=== PATIENT | female | born 1970 | race American Indian/Alaskan Native ===

== ENCOUNTER 2018-03-30 09:19 | Emergency (ER) | payer OTHER ==
[2018-03-30] MEDS ORDERED: SUBLIMAZE IV ONE ×2 (09:28→13:27)
[2018-03-30] MEDS ORDERED: REGLAN IV ONE (09:28)
[2018-03-30] MEDS ORDERED: BENADRYL IV ONE (09:28)
--- NOTE | 2018-03-30 09:30 | Emergency Department Report ---
ED General Adult HPI - General Chief complaint: Syncope Stated complaint: SYNCOPAL EPISODE Time Seen by Provider: 03/30/18 09:27 Source: patient, EMS (verbal report received from EMS.ems notes not available at time of chart dictation) Limitations: Physical Limitation - History of Present Illness Initial comments: This is a 48-year-old female with a possible history of chronic migraines, who presents to the ER with EMS for syncope and headache. As per verbal report from EMS, patient's last known well time is at/around 8:50 AM. Patient apparently had been complaining of headache, and had an episode of syncope. EMS reports normal fingerstick in the field. Patient complains of headache but is distracted. She cannot describe the nature of the headache, radiation, exacerbating or relieving factors. She reports that she's had severe headaches in the past, but is unable to answer whether or not this headache is the worst headache of her life. The patient is very distracted, it is not able to answer additional questions. She does follow some commands. The patient is moving 4 extremities. Sensation is intact to light touch. She is turning her head back and forth, and will not open her eyes when I ask her to examine her eyes. -: Sudden Location: head Radiation: other Quality: other Consistency: other Improves with: other Worsens with: other Associated Symptoms: headaches, loss of appetite, weakness - Related Data Previous Rx's Medication Instructions Recorded Last Taken Type Butalb/Acetaminophen/Caffeine 1 cap PO Q8HR PRN #15 cap 03/30/18 Unknown Rx [Fioricet 50-300-40 mg CAP] LORazepam [Ativan] 0.5 mg PO QHS #12 tab 03/30/18 Unknown Rx Topiramate [Topamax] 50 mg PO DAILY #15 tablet 03/30/18 Unknown Rx Allergies Allergy/AdvReac Type Severity Reaction Status Date / Time No Known Allergies Allergy Unverified 03/30/18 09:28 ED Review of Systems ROS: Stated complaint: SYNCOPAL EPISODE Other details as noted in HPI Comment: Unobtainable due to pts medical conditions Cardiovascular: syncope Neurological: headache Psychiatric: anxiety ED Past Medical Hx - Medications Home Medications: Home Medications Medication Instructions Recorded Confirmed Last Taken Type Butalb/Acetaminophen/Caffeine 1 cap PO Q8HR PRN #15 cap 03/30/18 Unknown Rx [Fioricet 50-300-40 mg CAP] LORazepam [Ativan] 0.5 mg PO QHS #12 tab 03/30/18 Unknown Rx Topiramate [Topamax] 50 mg PO DAILY #15 tablet 03/30/18 Unknown Rx ED Physical Exam - General Limitations: Physical Limitation General appearance: in distress - Head Head exam: Present: atraumatic, normocephalic - ENT ENT exam: Present: normal exam, normal orophraynx, normal external ear exam - Neck Neck exam: Present: normal inspection, full ROM. Absent: tenderness, meningismus - Respiratory Respiratory exam: Present: normal lung sounds bilaterally. Absent: respiratory distress, wheezes, rales, rhonchi, stridor, chest wall tenderness, accessory muscle use, decreased breath sounds - Cardiovascular Cardiovascular Exam: Present: regular rate, normal rhythm, normal heart sounds. Absent: bradycardia, tachycardia, irregular rhythm - GI/Abdominal GI/Abdominal exam: Present: soft. Absent: distended, tenderness, guarding, rebound, rigid, pulsatile mass - Extremities Exam Extremities exam: Present: normal inspection, other (2+ pulses noted in the bilateral upper, lower extremities. Compartments soft. No long bony tenderness. The pelvis is stable.). Absent: tenderness - Back Exam Back exam: Present: normal inspection, full ROM. Absent: tenderness, CVA tenderness (R), paraspinal tenderness - Neurological Exam Neurological exam: Present: alert (5 out of 5 strength in 4 extremities. Sensation intact to light touch in 4 extremities. Alert to name, follows commands), other (there is no obvious facial droop. The tongue is midline. Hearing is intact bilaterally. Sensation is intact to light touch in the bilateral V1, V2, V3 distribution unable to perform complete cranial nerve exam secondary to patient's inability to cooperate.) - Psychiatric Psychiatric exam: Present: anxious - Skin Skin exam: Present: warm, dry ED Course Vital Signs 03/30/18 03/30/18 03/30/18 09:19 09:42 09:45 Temperature 98.0 F Pulse Rate 81 103 H 102 H Respiratory 20 21 7 L Rate Blood Pressure 148/91 148/91 O2 Sat by Pulse 99 94 Oximetry 03/30/18 03/30/18 03/30/18 10:00 10:15 10:31 Temperature Pulse Rate 92 H 91 H 81 Respiratory 9 L 12 15 Rate Blood Pressure 148/91 119/82 O2 Sat by Pulse 96 99 99 Oximetry 03/30/18 03/30/18 03/30/18 10:45 11:01 11:15 Temperature Pulse Rate 82 79 79 Respiratory 18 17 17 Rate Blood Pressure 120/69 120/69 120/73 O2 Sat by Pulse 98 100 100 Oximetry 03/30/18 03/30/18 03/30/18 12:01 13:01 14:39 Temperature Pulse Rate Respiratory Rate Blood Pressure 141/84 128/79 128/79 O2 Sat by Pulse 95 97 96 Oximetry 03/30/18 03/30/18 03/30/18 15:01 16:01 17:00 Temperature Pulse Rate Respiratory Rate Blood Pressure 142/78 128/78 130/80 O2 Sat by Pulse 95 91 99 Oximetry 03/30/18 03/30/18 03/30/18 17:08 18:00 19:00 Temperature Pulse Rate 89 Respiratory Rate Blood Pressure 124/90 136/83 O2 Sat by Pulse 97 99 Oximetry 03/30/18 03/30/18 20:00 21:00 Temperature Pulse Rate 88 Respiratory Rate Blood Pressure 151/91 134/79 O2 Sat by Pulse 96 99 Oximetry - Reevaluation(s) Reevaluation #1: 03/30/18 09:35 Differential diagnosis, including but not limited to: Migraine headache, cluster headache, tension headache, subarachnoid hemorrhage, complex migraine Assessment and plan: 48-year-old female with headache and syncope, nonfocal motor exam, high suspicion for subarachnoid hemorrhage versus complex migraine. Patient called [facility] [place], [place] stroke to evaluate for possible subarachnoid hemorrhage. She will be treated symptomatically and supportively. If CT scan is nondiagnostic we'll perform lumbar puncture. Given current clinical concern for subarachnoid hemorrhage, the patient is not a TPA candidate in my opinion. Furthermore, she does not have any obvious motor deficits. Unfortunately she is so symptomatic FROM her headache, that she is unable to completely participate in a detailed neurologic examination. Reevaluation #2: 03/30/18 10:07 Discussed with neurology on-call, Dr. Clinton García , who agrees with plan for spinal tap, recommend CT angiogram if lumbar puncture is nondiagnostic, agrees that patient is not a TPA candidate. Reevaluation #3: 03/30/18 11:52 Patient reports feeling much better. Now examinable. Has NIH score of 0. Reports mother had an aneurysm. Reports father had a stroke. Also reports that she had "chronic migraines" while living in [place], and reports that she has experienced headache with passing out in the past. Reevaluation #4: 03/30/18 13:29 CT angiogram is negative. Fluoroscopic spinal tap pending at this time. Reevaluation #5: 03/30/18 15:[address] Carlee Gaitan to follow up on csf results. if perimesencephalic bleed not suggested by csf results, would admit patient for tia vs syncope. would hold aspirin given recent lp - Lumbar Puncture Consent Obtained: verbal consent, written consent, emergent situation Time Out Performed: Yes Indication for Procedure: R/O SA bleed Patient Position: Sitting Upright/Leaning F Skin Prep: Povidone-Iodine 1% Local Anesthetic Used: Lidocaine 1% Amount of anesthesia used (mls): 10 Spinal Needle Gauge: Other (18 g) Spinal Needle Length: 3in Interspace Used: L4-L5 Complications: none, unable to obtain CSF Patient Tolerated Procedure: well ED Medical Decision Making - Lab Data Result diagrams: 03/30/18 09:40 03/30/18 09:40 Vital Signs 03/30/18 03/30/18 03/30/18 09:19 09:42 09:45 Temperature 98.0 F Pulse Rate 81 103 H 102 H Respiratory 20 21 7 L Rate Blood Pressure 148/91 148/91 O2 Sat by Pulse 99 94 Oximetry 03/30/18 03/30/18 03/30/18 10:00 10:15 10:31 Temperature Pulse Rate 92 H 91 H 81 Respiratory 9 L 12 15 Rate Blood Pressure 148/91 119/82 O2 Sat by Pulse 96 99 99 Oximetry 03/30/18 03/30/18 03/30/18 10:45 11:01 11:15 Temperature Pulse Rate 82 79 79 Respiratory 18 17 17 Rate Blood Pressure 120/69 120/69 120/73 O2 Sat by Pulse 98 100 100 Oximetry Lab Results 03/30/18 03/30/18 03/30/18 Range/Units 09:40 09:40 09:40 WBC 5.7 (4.5-11.0) K/mm3 RBC 4.99 (3.65-5.03) M/mm3 Hgb 14.7 H (10.1-14.3) gm/dl Hct 42.8 (30.3-42.9) % MCV 86 (79-97) fl MCH 29 (28-32) pg MCHC 34 (30-34) % RDW 12.8 L (13.2-15.2) % Plt Count 324 (140-440) K/mm3 Add Manual Diff Complete Total Counted 100 Seg Neuts % (Manual) 38.0 L (40.0-70.0) % Band Neutrophils % 0 % Lymphocytes % (Manual) 42.0 H (13.4-35.0) % Reactive Lymphs % (Man) 3.0 % Monocytes % (Manual) 10.0 H (0.0-7.3) % Eosinophils % (Manual) 4.0 (0.0-4.3) % Basophils % (Manual) 3.0 H (0.0-1.8) % Metamyelocytes % 0 % Myelocytes % 0 % Promyelocytes % 0 % Blast Cells % 0 % Nucleated RBC % Not Reportable Seg Neutrophils # Man 2.2 (1.8-7.7) K/mm3 Band Neutrophils # 0.0 K/mm3 Lymphocytes # (Manual) 2.4 (1.2-5.4) K/mm3 Abs React Lymphs (Man) 0.2 K/mm3 Monocytes # (Manual) 0.6 (0.0-0.8) K/mm3 Eosinophils # (Manual) 0.2 (0.0-0.4) K/mm3 Basophils # (Manual) 0.2 H (0.0-0.1) K/mm3 Metamyelocytes # 0.0 K/mm3 Myelocytes # 0.0 K/mm3 Promyelocytes # 0.0 K/mm3 Blast Cells # 0.0 K/mm3 WBC Morphology Not Reportable Hypersegmented Neuts Not Reportable Hyposegmented Neuts Not Reportable Hypogranular Neuts Not Reportable Smudge Cells Not Reportable Toxic Granulation Not Reportable Toxic Vacuolation Not Reportable Dohle Bodies Not Reportable Pelger-Huet Anomaly Not Reportable Jonathon Rods Not Reportable Platelet Estimate Cons Clumped Platelets Not Reportable Plt Clumps, EDTA Not Reportable Large Platelets Not Reportable Giant Platelets Not Reportable Platelet Satelliting Not Reportable Plt Morphology Comment Not Reportable RBC Morphology Normal Dimorphic RBCs Not Reportable Polychromasia Not Reportable Hypochromasia Not Reportable Poikilocytosis Not Reportable Anisocytosis Not Reportable Microcytosis Not Reportable Macrocytosis Not Reportable Spherocytes Not Reportable Pappenheimer Bodies Not Reportable Sickle Cells Not Reportable Target Cells Not Reportable Tear Drop Cells Not Reportable Ovalocytes Not Reportable Helmet Cells Not Reportable [place] Bodies Not Reportable [place] Rings Not Reportable [place] Cells Not Reportable Bite Cells Not Reportable Crenated Cell Not Reportable Elliptocytes Not Reportable Acanthocytes (Spur) Not Reportable Rouleaux Not Reportable Hemoglobin C Crystals Not Reportable Schistocytes Not Reportable Malaria parasites Not Reportable Louis Bodies Not Reportable Hem Pathologist Commnt No PT 13.1 (12.2-14.9) Sec. INR 0.94 (0.87-1.13) APTT 25.3 (24.2-36.6) Sec. Thrombin Time 17.8 (15.1-19.6) Sec. Sodium 138 (137-145) mmol/L Potassium 3.9 (3.6-5.0) mmol/L Chloride 96.8 L (98-107) mmol/L Carbon Dioxide 27 (22-30) mmol/L Anion Gap 18 mmol/L BUN 14 (7-17) mg/dL Creatinine 0.8 (0.7-1.2) mg/dL Estimated GFR > 60 ml/min BUN/Creatinine Ratio 18 % Glucose 116 H (65-100) mg/dL Calcium 9.4 (8.4-10.2) mg/dL Total Bilirubin 0.20 (0.1-1.2) mg/dL AST 19 (5-40) units/L ALT 15 (7-56) units/L Alkaline Phosphatase 56 (35-129) units/L Total Creatine Kinase 265 H (30-135) units/L CK-MB (CK-2) 1.9 (0.0-4.0) ng/mL CK-MB (CK-2) Rel Index 0.7 (0-4) Troponin T < 0.010 (0.00-0.029) ng/mL Total Protein 7.8 (6.3-8.2) g/dL Albumin 4.0 (3.9-5) g/dL Albumin/Globulin Ratio 1.1 % Plasma/Serum Alcohol (0-0.07) % 03/30/18 Range/Units 09:40 WBC (4.5-11.0) K/mm3 RBC (3.65-5.03) M/mm3 Hgb (10.1-14.3) gm/dl Hct (30.3-42.9) % MCV (79-97) fl MCH (28-32) pg MCHC (30-34) % RDW (13.2-15.2) % Plt Count (140-440) K/mm3 Add Manual Diff Total Counted Seg Neuts % (Manual) (40.0-70.0) % Band Neutrophils % % Lymphocytes % (Manual) (13.4-35.0) % Reactive Lymphs % (Man) % Monocytes % (Manual) (0.0-7.3) % Eosinophils % (Manual) (0.0-4.3) % Basophils % (Manual) (0.0-1.8) % Metamyelocytes % % Myelocytes % % Promyelocytes % % Blast Cells % % Nucleated RBC % Seg Neutrophils # Man (1.8-7.7) K/mm3 Band Neutrophils # K/mm3 Lymphocytes # (Manual) (1.2-5.4) K/mm3 Abs React Lymphs (Man) K/mm3 Monocytes # (Manual) (0.0-0.8) K/mm3 Eosinophils # (Manual) (0.0-0.4) K/mm3 Basophils # (Manual) (0.0-0.1) K/mm3 Metamyelocytes # K/mm3 Myelocytes # K/mm3 Promyelocytes # K/mm3 Blast Cells # K/mm3 WBC Morphology Hypersegmented Neuts Hyposegmented Neuts Hypogranular Neuts Smudge Cells Toxic Granulation Toxic Vacuolation Dohle Bodies Pelger-Huet Anomaly Jonathon Rods Platelet Estimate Clumped Platelets Plt Clumps, EDTA Large Platelets Giant Platelets Platelet Satelliting Plt Morphology Comment RBC Morphology Dimorphic RBCs Polychromasia Hypochromasia Poikilocytosis Anisocytosis Microcytosis Macrocytosis Spherocytes Pappenheimer Bodies Sickle Cells Target Cells Tear Drop Cells Ovalocytes Helmet Cells [place] Bodies [place] Rings [place] Cells Bite Cells Crenated Cell Elliptocytes Acanthocytes (Spur) Rouleaux Hemoglobin C Crystals Schistocytes Malaria parasites Louis Bodies Hem Pathologist Commnt PT (12.2-14.9) Sec. INR (0.87-1.13) APTT (24.2-36.6) Sec. Thrombin Time (15.1-19.6) Sec. Sodium (137-145) mmol/L Potassium (3.6-5.0) mmol/L Chloride (98-107) mmol/L Carbon Dioxide (22-30) mmol/L Anion Gap mmol/L BUN (7-17) mg/dL Creatinine (0.7-1.2) mg/dL Estimated GFR ml/min BUN/Creatinine Ratio % Glucose (65-100) mg/dL Calcium (8.4-10.2) mg/dL Total Bilirubin (0.1-1.2) mg/dL AST (5-40) units/L ALT (7-56) units/L Alkaline Phosphatase (35-129) units/L Total Creatine Kinase (30-135) units/L CK-MB (CK-2) (0.0-4.0) ng/mL CK-MB (CK-2) Rel Index (0-4) Troponin T (0.00-0.029) ng/mL Total Protein (6.3-8.2) g/dL Albumin (3.9-5) g/dL Albumin/Globulin Ratio % Plasma/Serum Alcohol < 0.01 (0-0.07) % Critical care attestation.: If time is entered above; I have spent that time in minutes in the direct care of this critically ill patient, excluding procedure time. ED Disposition Clinical Impression: Syncope, Headache Disposition: OP ADMIT IP TO THIS HOSP Is pt being admited?: Yes Condition: Good Instructions: Migraine Headache (ED), Syncope (ED) Prescriptions: LORazepam [Ativan] 0.5 mg PO QHS #12 tab Butalb/Acetaminophen/Caffeine [Fioricet 50-300-40 mg CAP] 1 cap PO Q8HR PRN #15 cap PRN Reason: Headache Topiramate [Topamax] 50 mg PO DAILY #15 tablet Referrals: PRIMARY MD ALLIE [Primary Care Provider] - 3-5 Days FERMÍN PRITCHETT MD [Staff Physician] - 3-5 Days Forms: Work/School Release Form(ED) - Assessment Assessment Interval: Baseline - Level of Consciousness 1a. Level of Consciousness: alert/keenly responsive - LOC Questions 1b. LOC Questions: answers both correctly - LOC Command 1c. LOC Commands: performs tasks correctly - Best Gaze 2. Best Gaze: normal - Visual 3. Visual: no visual loss - Facial Palsy 4. Facial Palsy: normal symmetrical movement - Motor Arm 5b. Motor Arm Right: no drift 5a. Motor Arm Left: no drift - Motor Leg 6a. Motor Leg Left: no drift 6b. Motor Leg Right: no drift - Limb Ataxia 7. Limb Ataxia: absent - Sensory 8. Sensory: normal - Best Language 9. Best Language: no aphasia - Dysarthria 10. Dysarthria: normal - Extinction and Inattention 11. Extinction/Inattention: no abnormality (at 11 53 am) - Scoring Total Score: 0 Stroke Severity: No Stroke Symptoms
[2018-03-30] MEDS ORDERED: XYLOCAINE 2% INFILTRATI ONE (09:37)
--- NOTE | 2018-03-30 09:49 | Cat Scan Report ---
CT HEAD WITHOUT CONTRAST: HISTORY: Headache, syncope, suspect subarachnoid hemorrhage. TECHNIQUE: Sequential 2.5mm CT images. COMPARISON: none. FINDINGS: Cerebral Parenchyma: Within normal limits. Cerebellum: Within normal limits. Brainstem: Within normal limits. Ventricles: Normal. Sella: Normal. Extra-axial spaces: Normal. Basal Cisterns: Normal. Intracranial Hemorrhage: None. Midline Shift: None. Calvarium: Normal. Sinuses: Normal. Mastoid Air Cells: Normal. Visualized Orbits: Normal. IMPRESSION: Cranial CT scan within normal limits. These findings were relayed to Johana, the patient's nurse, in the emergency department at 0945 hours.
[2018-03-30 09:55] LABS: Hematocrit 42.8 % (30.3-42.9); Hemoglobin 14.7 gm/dl (10.1-14.3); Mean Corpuscular HGB Conc 34 % (30-34); Mean Corpuscular Hemoglobin 29 pg (28-32); Mean Corpuscular Volume 86 fl (79-97); Platelet Count 324 K/mm3 (140-440); Red Blood Count 4.99 M/mm3 (3.65-5.03); Red Cell Distribution Width 12.8 % (13.2-15.2)
[2018-03-30 10:07] LABS: INR 0.94 (0.87-1.13); Partial Thromboplastin Time 25.3 Sec. (24.2-36.6)
[2018-03-30] MEDS ORDERED: SUBLIMAZE ONE (10:07)
[2018-03-30 10:08] LABS: Thrombin Time 17.8 Sec. (15.1-19.6)
[2018-03-30 10:19] LABS: Creatine Kinase MB 1.9 ng/mL (0.0-4.0)
[2018-03-30 10:20] LABS: Alanine Aminotransferase 15 units/L (7-56); BUN/Creatinine Ratio 18; Blood Urea Nitrogen 14 mg/dL (7-17); Calcium 9.4 mg/dL (8.4-10.2); Hemolysis Index 5
[2018-03-30 11:10] LABS: Total Cells Counted 100
[2018-03-30 11:11] LABS: Platelet Estimate Cons; RBC Morphology Normal
--- NOTE | 2018-03-30 12:07 | Cat Scan Report ---
CTA NECK: HISTORY: Headache, syncope. TECHNIQUE: Helical CT following IV contrast. Sagittal and coronal reformatted images. 3D volume rendering technique. Stenosis was calculated using NASCET criteria. FINDINGS: The visualized aortic arch, innominate artery and proximal bilateral subclavian arteries are widely patent with less than 20% stenosis. Within the right carotid system: Less than 20% stenosis. Within the left carotid system: Less than 20% stenosis. The cervical vertebral arteries are patent with less than 20% stenosis. IMPRESSION: Unremarkable CTA of the neck.
--- NOTE | 2018-03-30 12:08 | Cat Scan Report ---
CTA HEAD: HISTORY: Headache, syncope. TECHNIQUE: Helical CT images after IV contrast with 0.625mm reformations. Sagittal and coronal reformats. Rotational MIP images. 3D volume rendering technique. FINDINGS: The arterial structures of the anterior and posterior circulations are patent throughout. No evidence for stenosis, occlusion or aneurysm. IMPRESSION: Unremarkable CTA head.
[2018-03-30] MEDS ORDERED: SOLU-Medrol IV ONE (12:53)
[2018-03-30] MEDS ORDERED: MAGNESIUM SULFATE IV ONE (12:54)
[2018-03-30] MEDS ORDERED: XYLOCAINE 1% 20 mL ONE (13:37)
[2018-03-30] MEDS ORDERED: MAGNESIUM SULFATE 1 GM in NACL 0.9% 50 ML IV ONE (14:00)
--- NOTE | 2018-03-30 14:29 | Procedure Note ---
Date of procedure: 03/30/18 Pre-op diagnosis: headache Post-op diagnosis: same Procedure: lumbar puncture Anesthesia: local Surgeon: OK RIVAS Estimated blood loss: none Pathology: list (4 tubes) Specimen disposition: to lab Condition: stable Disposition: other (back to ER)
[2018-03-30 14:59] LABS: Glucose,CSF 75 mg/dL
[2018-03-30 17:02] LABS: Total Cells Counted 10 /mm3
[2018-03-30 17:03] LABS: Appearance,CSF Clear; Red Blood Cell,CSF 3 /mm3 (0-0); White Blood Cell,CSF 4 /mm3 (1-10)
[2018-03-30 17:05] LABS: Basophils CSF 0 %
[2018-03-30 17:06] LABS: Total Cells Counted 10 /mm3; White Blood Cell,CSF 5 /mm3 (1-10)
[2018-03-30 17:07] LABS: Appearance,CSF Clear; Basophils CSF 0 %; Red Blood Cell,CSF 3 /mm3 (0-0)
[2018-03-30] MEDS ORDERED: MORPHINE ONE (20:04)
[2018-03-30] MEDS ORDERED: MORPHINE IV ONE (20:07)
[2018-03-30 21:26] VITALS: BP 134/79
--- NOTE | 2018-04-02 07:40 | Fluoroscopy Report ---
FLUOROSCOPY LUMBAR PUNCTURE History: Headache, syncope, rule out subarachnoid hemorrhage. Description of procedure: Informed consent was obtained. A time out was called. Sterile technique was utilized. 1% lidocaine for skin anesthesia. Using fluoroscopy guidance, lumbar puncture was performed at the L2-3 level. One fluoroscopic image was captured. There was spontaneous return of clear CSF. 4 tubes of CSF were collected for laboratory analysis. No complications. Impression: Successful fluoroscopy-guided lumbar puncture.
== END 2018-03-30 21:25 | disposition admitted as inpatient to this hospital (09) ==
LOC: ED 09:19
DX: R55 Syncope and collapse (principal); R51 Headache
CPT/HCPCS: 36415; 62270; 70450; 70496; 70498; 77003; 80053; 82550; 82553; 82947; 84160; 84484; 85007; 85025; 85379; 85610; 85670; 85730; 87116; 89051; 93005; 93010; 96374; 96375; 96376; 99285; G0480; J1200; J2270; J2765; J2930; J3010; Q9967; 80320; J3475